=== PATIENT | female | born 1990 | race Caucasian/White ===

== ENCOUNTER 2017-09-17 18:13 | Emergency (ER) | payer OTHER ==
[~2017-09-17] VITALS: Ht 157.5 cm; Wt 75.0 kg
[2017-09-17 19:18] LABS: HEMATOCRIT 37.9 % (36.0-46.0); HEMOGLOBIN 12.8 G/DL (11.9-15.5); MCHC 33.8 G/DL (30.0-36.0); PLATELET COUNT 273 K/uL (156-360); RBC DIS.WIDTH-CV 12.6 % (11.8-14.6); RED BLOOD COUNT 4.26 M/uL (3.80-5.20)
[2017-09-17 19:27] LABS: CHLORIDE 110 mEq/L (99-109); SODIUM 140 mEq/L (136-147)
[2017-09-17 19:29] LABS: GLUCOSE 77 mg/dL (70-99)
[2017-09-17 19:32] LABS: SERUM ETHYL ALCOHOL < 10 mg/dL
[2017-09-17 19:33] LABS: CREATININE 0.8 mg/dL (0.6-1.3); GFR ESTIMATE (CALCULATED) > 59 mL/min/; UREA NITROGEN (BUN) 9 mg/dL (9-23)
[2017-09-17 19:35] LABS: CREATINE KINASE 146 IU/L (1-294)
[2017-09-17 19:41] LABS: QUANTITATIVE HCG < 4.0 MIU/ML
[2017-09-17 19:42] LABS: APPEARANCE CLEAR ((CLEAR)); BILIRUBIN NEGATIVE; BLOOD NEGATIVE; COLOR YELLOW ((YELLOW)); GLUCOSE (STRIP) NEGATIVE; KETONES NEGATIVE; LEUKOCYTES NEGATIVE; NITRITE NEGATIVE; PROTEIN (STRIP) NEGATIVE; SPECIFIC GRAVITY 1.011 (1.000-1.030); UCUL ADDED? NO
[2017-09-17 20:00] LABS: AMPHETAMINE NEGATIVE (500 ng/mL); BARBITURATES NEGATIVE (200 ng/mL); BENZODIAZEPINES NEGATIVE (150 ng/mL); BUPRENORPHINE NEGATIVE (10 ng/mL); COCAINE NEGATIVE (150 ng/mL); METHADONE NEGATIVE (200 ng/mL); METHAMPHETAMINE NEGATIVE (500 ng/mL); OPIATES (MORPHINE) NEGATIVE (100 ng/mL); OXYCODONE NEGATIVE (100 ng/mL); PHENCYCLIDINE PRESUMPTIVE POSITIVE (25 ng/mL); PROPOXYPHENE NEGATIVE (300 ng/mL); THC CANNABINOIDS NEGATIVE (50 ng/mL); TRICYCLIC ANTIDEPRESSANTS NEGATIVE (300 ng/mL)
[2017-09-17 20:56] VITALS: BP 136/93
== END 2017-09-17 21:37 | disposition home or self-care (01) ==
LOC: EME 18:13
PROVIDERS: Physician Assistant
DX: R55 Syncope and collapse (principal); R56.9 Unspecified convulsions; B19.20 Unspecified viral hepatitis C without hepatic coma; F17.200 Nicotine dependence, unspecified, uncomplicated
CPT/HCPCS: 71046; 80048; 81003; 82550; 84702; 84999; 85027; 93005; 99281; 99285; G0480; J1885